=== PATIENT | male | born 1955 | race Caucasian/White ===

== ENCOUNTER 2021-12-09 12:44 | Emergency (ER) | payer MEDICARE ==
[2021-12-09] MEDS ORDERED: Bacitracin 1 PK ONE (14:22)
[2021-12-09] MEDS ORDERED: Lidocaine 1% (PF) 30 ML VIAL ONE (14:23)
[2021-12-09] MEDS ORDERED: Boostrix 0.5 ML (Tdap) VIAL (>/=7 yrs of age) ONE (14:23)
[2021-12-09] MEDS ORDERED: Cephalexin 500 MG CAP ONE (15:59)
== END 2021-12-09 16:30 | disposition home or self-care (01) ==
LOC: MADERS 12:44
DX: S62.635B Displaced fracture of distal phalanx of left ring finger, initial encounter for open fracture (principal); I10 Essential (primary) hypertension; F17.220 Nicotine dependence, chewing tobacco, uncomplicated; Z23 Encounter for immunization; W31.2XXA Contact with powered woodworking and forming machines, initial encounter
CPT/HCPCS: 12002; 26750; 90471; 90715; J2001